=== PATIENT | female | born 1950 | race Native Hawaiian/Other Pacific Islander ===

== ENCOUNTER 2019-03-11 09:52 | Outpatient (CLI) | payer OTHER, BC ==
[2019-03-11 10:09] LABS: PLATELET COUNT 141 K/uL (152-353)
[2019-03-11 10:31] LABS: POTASSIUM 3.3 mmol/L (3.6-5.2)
== END 2019-03-11 20:11 | disposition home or self-care (01) ==
LOC: LABW 09:52
PROVIDERS: Internal Medicine Hematology & Oncology
DX: D64.89 Other specified anemias (principal)
CPT/HCPCS: 36415; 80053; 83615; 85027

== ENCOUNTER 2019-03-14 08:21 | Outpatient (CLI) | payer OTHER, BC ==
[2019-03-14 09:08] LABS: POTASSIUM 3.4 mmol/L (3.6-5.2)
[2019-03-14 09:43] LABS: PLATELET COUNT 156 K/uL (152-353)
== END 2019-03-14 23:03 | disposition home or self-care (01) ==
LOC: LABW 08:21
PROVIDERS: Internal Medicine Hematology & Oncology
DX: D64.89 Other specified anemias (principal)
CPT/HCPCS: 36415; 80053; 83615; 85027

== ENCOUNTER 2019-03-18 09:15 | Outpatient (CLI) | payer OTHER, BC ==
[2019-03-18 09:41] LABS: POTASSIUM 3.6 mmol/L (3.6-5.2)
[2019-03-18 09:50] LABS: PLATELET COUNT 128 K/uL (152-353)
== END 2019-03-18 19:12 | disposition home or self-care (01) ==
LOC: LABW 09:15
PROVIDERS: Internal Medicine Hematology & Oncology
DX: D64.89 Other specified anemias (principal)
CPT/HCPCS: 36415; 80053; 83615; 85027

== ENCOUNTER 2019-03-21 10:56 | Outpatient (CLI) | payer OTHER, BC ==
[2019-03-21 11:30] LABS: PLATELET COUNT 108 K/uL (152-353)
[2019-03-21 12:17] LABS: POTASSIUM 4.1 mmol/L (3.6-5.2)
== END 2019-03-21 22:41 | disposition home or self-care (01) ==
LOC: LABW 10:56
PROVIDERS: Internal Medicine Hematology & Oncology
DX: D64.89 Other specified anemias (principal)
CPT/HCPCS: 36415; 80053; 83615; 85027

== ENCOUNTER 2019-03-25 10:32 | Outpatient (CLI) | payer OTHER, BC ==
[2019-03-25 10:43] LABS: PLATELET COUNT 110 K/uL (152-353)
[2019-03-25 10:53] LABS: POTASSIUM 3.9 mmol/L (3.6-5.2)
== END 2019-03-25 19:13 | disposition home or self-care (01) ==
LOC: LABW 10:32
PROVIDERS: Internal Medicine Hematology & Oncology
DX: D64.89 Other specified anemias (principal)
CPT/HCPCS: 36415; 80053; 83615; 85027

== ENCOUNTER 2019-04-02 10:34 | Outpatient (CLI) | payer OTHER, BC ==
[2019-04-02 11:18] LABS: PLATELET COUNT 138 K/uL (152-353)
== END 2019-04-02 20:06 | disposition home or self-care (01) ==
LOC: LABW 10:34
PROVIDERS: Internal Medicine Hematology & Oncology
DX: D59.1 Other autoimmune hemolytic anemias (principal)
CPT/HCPCS: 36415; 83615; 85027

== ENCOUNTER 2019-04-08 12:28 | Outpatient (CLI) | payer OTHER, BC ==
[2019-04-08 12:41] LABS: PLATELET COUNT 158 K/uL (152-353)
== END 2019-04-08 21:36 | disposition home or self-care (01) ==
LOC: LABW 12:28
PROVIDERS: Internal Medicine Hematology & Oncology
DX: D59.1 Other autoimmune hemolytic anemias (principal)
CPT/HCPCS: 36415; 83615; 85027

== ENCOUNTER 2019-04-16 10:19 | Outpatient (CLI) | payer OTHER, BC ==
[2019-04-16 10:40] LABS: PLATELET COUNT 139 K/uL (152-353)
== END 2019-04-16 19:48 | disposition home or self-care (01) ==
LOC: LABW 10:19
PROVIDERS: Internal Medicine Hematology & Oncology
DX: D59.1 Other autoimmune hemolytic anemias (principal)
CPT/HCPCS: 36415; 83615; 85027

== ENCOUNTER 2019-04-22 09:59 | Outpatient (CLI) | payer OTHER, BC ==
[2019-04-22 10:45] LABS: PLATELET COUNT 139 K/uL (152-353)
[2019-04-22 10:57] LABS: POTASSIUM 4.2 mmol/L (3.6-5.2)
== END 2019-04-22 19:12 | disposition home or self-care (01) ==
LOC: LABW 09:59
PROVIDERS: Internal Medicine Hematology & Oncology
DX: D59.1 Other autoimmune hemolytic anemias (principal)
CPT/HCPCS: 36415; 80053; 83615; 85027

== ENCOUNTER 2019-04-29 11:41 | Outpatient (CLI) | payer OTHER, BC ==
[2019-04-29 11:57] LABS: PLATELET COUNT 137 K/uL (152-353)
== END 2019-04-29 19:19 | disposition home or self-care (01) ==
LOC: LABW 11:41
PROVIDERS: Internal Medicine Hematology & Oncology
DX: D59.1 Other autoimmune hemolytic anemias (principal)
CPT/HCPCS: 36415; 83615; 85027

== ENCOUNTER 2019-05-06 09:51 | Outpatient (CLI) | payer OTHER, BC ==
[2019-05-06 10:28] LABS: PLATELET COUNT 139 K/uL (152-353)
== END 2019-05-06 23:05 | disposition home or self-care (01) ==
LOC: LABW 09:51
PROVIDERS: Internal Medicine Hematology & Oncology
DX: D59.1 Other autoimmune hemolytic anemias (principal)
CPT/HCPCS: 36415; 83615; 85007; 85027

== ENCOUNTER 2019-05-14 10:15 | Outpatient (CLI) | payer OTHER, BC ==
[2019-05-14 10:43] LABS: PLATELET COUNT 112 K/uL (152-353)
[2019-05-14 10:51] LABS: POTASSIUM 3.9 mmol/L (3.6-5.2)
== END 2019-05-14 20:38 | disposition home or self-care (01) ==
LOC: LABW 10:15
PROVIDERS: Internal Medicine Hematology & Oncology
DX: D59.1 Other autoimmune hemolytic anemias (principal)
CPT/HCPCS: 36415; 80053; 83615; 85027

== ENCOUNTER 2019-05-24 09:07 | Outpatient (CLI) | payer OTHER, BC ==
[2019-05-24 09:45] LABS: PLATELET COUNT 122 K/uL (152-353)
[2019-05-24 10:00] LABS: POTASSIUM 3.8 mmol/L (3.6-5.2)
== END 2019-05-24 23:30 | disposition home or self-care (01) ==
LOC: LABW 09:07
PROVIDERS: Internal Medicine Hematology & Oncology
DX: D59.1 Other autoimmune hemolytic anemias (principal)
CPT/HCPCS: 80053; 83615; 85027

== ENCOUNTER 2019-06-04 10:05 | Outpatient (CLI) | payer OTHER, BC ==
[2019-06-04 10:45] LABS: PLATELET COUNT 133 K/uL (152-353)
[2019-06-04 11:03] LABS: POTASSIUM 3.9 mmol/L (3.6-5.2)
== END 2019-06-04 21:10 | disposition home or self-care (01) ==
LOC: LABW 10:05
PROVIDERS: Internal Medicine Hematology & Oncology
DX: D59.1 Other autoimmune hemolytic anemias (principal)
CPT/HCPCS: 36415; 80053; 83615; 85027

== ENCOUNTER 2019-06-11 10:15 | Outpatient (CLI) | payer OTHER, BC ==
[2019-06-11 12:27] LABS: PLATELET COUNT 145 K/uL (152-353)
[2019-06-11 12:47] LABS: POTASSIUM 4.1 mmol/L (3.6-5.2)
== END 2019-06-11 22:33 | disposition home or self-care (01) ==
LOC: LABW 10:15
PROVIDERS: Nurse Practitioner Family
DX: D59.1 Other autoimmune hemolytic anemias (principal)
CPT/HCPCS: 36415; 80053; 83615; 85027

== ENCOUNTER 2019-06-18 10:45 | Outpatient (CLI) | payer OTHER, BC ==
[2019-06-18 12:07] LABS: PLATELET COUNT 138 K/uL (152-353)
[2019-06-18 12:18] LABS: POTASSIUM 3.8 mmol/L (3.6-5.2)
== END 2019-06-18 19:25 | disposition home or self-care (01) ==
LOC: LABW 10:45
PROVIDERS: Nurse Practitioner Family
DX: D59.1 Other autoimmune hemolytic anemias (principal)
CPT/HCPCS: 36415; 80053; 83615; 85027

== ENCOUNTER 2019-06-25 10:17 | Outpatient (CLI) | payer OTHER, BC ==
[2019-06-25 10:55] LABS: PLATELET COUNT 128 K/uL (152-353)
[2019-06-25 11:13] LABS: POTASSIUM 4.1 mmol/L (3.6-5.2)
== END 2019-06-25 19:08 | disposition home or self-care (01) ==
LOC: LABW 10:17
PROVIDERS: Nurse Practitioner Family
DX: D59.1 Other autoimmune hemolytic anemias (principal)
CPT/HCPCS: 36415; 80053; 83615; 85027

== ENCOUNTER 2019-07-03 10:17 | Outpatient (CLI) | payer OTHER, BC ==
[2019-07-03 10:48] LABS: PLATELET COUNT 137 K/uL (152-353)
[2019-07-03 10:52] LABS: POTASSIUM 4.3 mmol/L (3.6-5.2)
== END 2019-07-03 22:22 | disposition home or self-care (01) ==
LOC: LABW 10:17
PROVIDERS: Nurse Practitioner Family
DX: D59.1 Other autoimmune hemolytic anemias (principal)
CPT/HCPCS: 36415; 80053; 83615; 85027

== ENCOUNTER 2019-07-16 09:52 | Outpatient (CLI) | payer OTHER, BC ==
[2019-07-16 10:16] LABS: PLATELET COUNT 137 K/uL (152-353)
[2019-07-16 10:29] LABS: POTASSIUM 4.2 mmol/L (3.6-5.2)
== END 2019-07-16 21:47 | disposition home or self-care (01) ==
LOC: LABW 09:52
PROVIDERS: Nurse Practitioner Family
DX: D59.1 Other autoimmune hemolytic anemias (principal)
CPT/HCPCS: 36415; 80053; 83615; 85027

== ENCOUNTER 2019-07-22 09:57 | Outpatient (CLI) | payer OTHER, BC ==
[2019-07-22 10:12] LABS: PLATELET COUNT 150 K/uL (152-353)
[2019-07-22 10:28] LABS: POTASSIUM 4.1 mmol/L (3.6-5.2); SODIUM 142 mmol/L (136-145)
== END 2019-07-22 19:52 | disposition home or self-care (01) ==
LOC: LABW 09:57
PROVIDERS: Nurse Practitioner Family
DX: D59.1 Other autoimmune hemolytic anemias (principal)
CPT/HCPCS: 36415; 80053; 83615; 85027

== ENCOUNTER 2019-07-29 10:21 | Outpatient (CLI) | payer OTHER, BC ==
[2019-07-29 10:40] LABS: PLATELET COUNT 140 K/uL (152-353)
[2019-07-29 10:50] LABS: POTASSIUM 4.2 mmol/L (3.6-5.2)
== END 2019-07-29 23:10 | disposition home or self-care (01) ==
LOC: LABW 10:21
PROVIDERS: Internal Medicine Hematology & Oncology
DX: E11.9 Type 2 diabetes mellitus without complications (principal); D59.1 Other autoimmune hemolytic anemias
CPT/HCPCS: 36415; 80053; 80061; 82043; 82570; 83036; 83525; 83615; 85027

== ENCOUNTER 2019-08-05 09:09 | Outpatient (CLI) | payer OTHER, BC ==
[2019-08-05 09:53] LABS: PLATELET COUNT 144 K/uL (152-353)
== END 2019-08-05 22:03 | disposition home or self-care (01) ==
LOC: LABW 09:09
PROVIDERS: Internal Medicine Hematology & Oncology
DX: D59.1 Other autoimmune hemolytic anemias (principal)
CPT/HCPCS: 36415; 83615; 85027

== ENCOUNTER 2019-08-13 13:51 | Outpatient (CLI) | payer OTHER, BC ==
[2019-08-13 14:35] LABS: PLATELET COUNT 143 K/uL (152-353)
== END 2019-08-13 21:33 | disposition home or self-care (01) ==
LOC: LABW 13:51
PROVIDERS: Internal Medicine Hematology & Oncology
DX: D59.1 Other autoimmune hemolytic anemias (principal)
CPT/HCPCS: 36415; 83615; 85027

== ENCOUNTER 2019-08-20 13:10 | Outpatient (CLI) | payer OTHER, BC ==
[2019-08-20 13:23] LABS: PLATELET COUNT 145 K/uL (152-353)
== END 2019-08-20 20:36 | disposition home or self-care (01) ==
LOC: LABW 13:10
PROVIDERS: Internal Medicine Hematology & Oncology
DX: D59.1 Other autoimmune hemolytic anemias (principal)
CPT/HCPCS: 36415; 83615; 85027

== ENCOUNTER 2019-09-03 10:18 | Outpatient (CLI) | payer OTHER, BC ==
[2019-09-03 10:37] LABS: PLATELET COUNT 133 K/uL (152-353)
== END 2019-09-03 20:37 | disposition home or self-care (01) ==
LOC: LABW 10:18
PROVIDERS: Internal Medicine Hematology & Oncology
DX: D59.1 Other autoimmune hemolytic anemias (principal)
CPT/HCPCS: 36415; 83615; 85027

== ENCOUNTER 2019-09-10 10:31 | Outpatient (CLI) | payer OTHER, BC ==
[2019-09-10 10:52] LABS: PLATELET COUNT 128 K/uL (152-353)
== END 2019-09-10 19:07 | disposition home or self-care (01) ==
LOC: LABW 10:31
PROVIDERS: Internal Medicine Hematology & Oncology
DX: D59.1 Other autoimmune hemolytic anemias (principal)
CPT/HCPCS: 36415; 83615; 85027

== ENCOUNTER 2019-09-17 13:53 | Outpatient (CLI) | payer OTHER, BC ==
[2019-09-17 14:26] LABS: PLATELET COUNT 138 K/uL (152-353)
== END 2019-09-17 21:27 | disposition home or self-care (01) ==
LOC: LABW 13:53
PROVIDERS: Internal Medicine Hematology & Oncology
DX: D59.1 Other autoimmune hemolytic anemias (principal)
CPT/HCPCS: 36415; 83615; 85007; 85027

== ENCOUNTER 2019-09-19 14:13 | Outpatient (CLI) | payer OTHER, BC | END 2019-09-19 19:34 | disposition home or self-care (01) | LOC: LABW 14:13 | PROVIDERS: Internal Medicine Hematology & Oncology | DX: D59.1 Other autoimmune hemolytic anemias (principal) | CPT/HCPCS: 36415; 80053; 83010; 83615 ==

== ENCOUNTER 2019-09-24 14:06 | Outpatient (CLI) | payer OTHER, BC ==
[2019-09-24 14:51] LABS: PLATELET COUNT 137 K/uL (152-353)
[2019-09-24 16:02] LABS: POTASSIUM 4.3 mmol/L (3.6-5.2)
== END 2019-09-24 23:33 | disposition home or self-care (01) ==
LOC: LABW 14:06
PROVIDERS: Internal Medicine Hematology & Oncology
DX: D61.818 Other pancytopenia (principal); D64.9 Anemia, unspecified
CPT/HCPCS: 36415; 80053; 82607; 82728; 82746; 83010; 83540; 83550; 83615; 85027

== ENCOUNTER 2019-10-17 12:07 | Outpatient (CLI) | payer OTHER, BC ==
[2019-10-17 14:04] LABS: PLATELET COUNT 157 K/uL (152-353)
== END 2019-10-17 22:02 | disposition home or self-care (01) ==
LOC: LABW 12:07
PROVIDERS: Internal Medicine Hematology & Oncology
DX: D61.818 Other pancytopenia (principal)
CPT/HCPCS: 36415; 85027

== ENCOUNTER 2019-11-12 13:19 | Outpatient (CLI) | payer OTHER, BC ==
[2019-11-12 13:33] LABS: PLATELET COUNT 140 K/uL (152-353)
== END 2019-11-12 20:30 | disposition home or self-care (01) ==
LOC: LABW 13:19
PROVIDERS: Internal Medicine Hematology & Oncology
DX: D59.1 Other autoimmune hemolytic anemias (principal)
CPT/HCPCS: 36415; 85027

== ENCOUNTER 2019-12-03 13:53 | Outpatient (CLI) | payer OTHER, BC ==
[2019-12-03 14:08] LABS: PLATELET COUNT 159 K/uL (152-353)
[2019-12-03 14:24] LABS: POTASSIUM 4.4 mmol/L (3.6-5.2)
== END 2019-12-03 19:13 | disposition home or self-care (01) ==
LOC: LABW 13:53
PROVIDERS: Internal Medicine Hematology & Oncology
DX: D59.10 Autoimmune hemolytic anemia, unspecified (principal)
CPT/HCPCS: 36415; 80053; 85027

== ENCOUNTER 2020-01-02 13:32 | Outpatient (CLI) | payer OTHER, BC ==
[2020-01-02 14:08] LABS: POTASSIUM 4.3 mmol/L (3.6-5.2)
[2020-01-02 14:26] LABS: PLATELET COUNT 162 K/uL (152-353)
== END 2020-01-02 21:05 | disposition home or self-care (01) ==
LOC: LABW 13:32
PROVIDERS: ATTEND Internal Medicine Hematology & Oncology
DX: D59.19 Other autoimmune hemolytic anemia (principal)
CPT/HCPCS: 36415; 80053; 85027

== ENCOUNTER 2020-02-28 15:29 | Outpatient (CLI) | payer BC ==
[2020-02-28 16:09] LABS: PLATELET COUNT 129 K/uL (152-353)
[2020-02-28 16:20] LABS: POTASSIUM 4.4 mmol/L (3.6-5.2)
== END 2020-02-28 19:06 | disposition home or self-care (01) ==
LOC: LABW 15:29
PROVIDERS: ATTEND Nurse Practitioner Family
DX: D59.10 Autoimmune hemolytic anemia, unspecified (principal)
CPT/HCPCS: 36415; 80053; 83615; 85027

== ENCOUNTER 2020-03-05 13:34 | Outpatient (CLI) | payer BC ==
[2020-03-05 14:07] LABS: PLATELET COUNT 105 K/uL (152-353)
[2020-03-05 14:24] LABS: POTASSIUM 4.1 mmol/L (3.6-5.2)
== END 2020-03-05 21:39 | disposition home or self-care (01) ==
LOC: LABW 13:34
PROVIDERS: ATTEND Internal Medicine Hematology & Oncology
DX: D61.818 Other pancytopenia (principal)
CPT/HCPCS: 36415; 80053; 85027

== ENCOUNTER 2020-03-17 14:14 | Outpatient (CLI) | payer BC ==
[2020-03-17 14:54] LABS: POTASSIUM 4.4 mmol/L (3.6-5.2)
[2020-03-17 15:11] LABS: PLATELET COUNT 111 K/uL (152-353)
== END 2020-03-17 21:36 | disposition home or self-care (01) ==
LOC: LABW 14:14
PROVIDERS: ATTEND Nurse Practitioner Family
DX: D61.818 Other pancytopenia (principal)
CPT/HCPCS: 36415; 80053; 85027

== ENCOUNTER 2020-03-26 08:05 | Outpatient (CLI) | payer BC ==
[2020-03-26 08:14] LABS: PLATELET COUNT 151 K/uL (152-353)
== END 2020-03-26 20:04 | disposition home or self-care (01) ==
LOC: LAB 08:05
PROVIDERS: ATTEND Nurse Practitioner Family
DX: D61.818 Other pancytopenia (principal)
CPT/HCPCS: 80053; 85027

== ENCOUNTER 2020-04-08 08:50 | Outpatient (CLI) | payer BC ==
[2020-04-08 09:20] LABS: PLATELET COUNT 140 K/uL (152-353)
== END 2020-04-08 21:40 | disposition home or self-care (01) ==
LOC: LAB 08:50
PROVIDERS: ATTEND Internal Medicine Hematology & Oncology
DX: D61.818 Other pancytopenia (principal)
CPT/HCPCS: 80053; 85027

== ENCOUNTER 2020-04-22 13:17 | Outpatient (CLI) | payer BC ==
[2020-04-22 13:31] LABS: POTASSIUM 4.5 mmol/L (3.6-5.2)
[2020-04-22 13:59] LABS: PLATELET COUNT 125 K/uL (152-353)
== END 2020-04-22 21:13 | disposition home or self-care (01) ==
LOC: LAB 13:17
PROVIDERS: ATTEND Internal Medicine Hematology & Oncology
DX: D59.10 Autoimmune hemolytic anemia, unspecified (principal); D61.818 Other pancytopenia
CPT/HCPCS: 80053; 85027

== ENCOUNTER 2020-04-29 08:30 | Outpatient (CLI) | payer BC ==
[2020-04-29 09:37] LABS: PLATELET COUNT 118 K/uL (152-353)
[2020-04-29 10:07] LABS: POTASSIUM 3.8 mmol/L (3.6-5.2)
== END 2020-04-29 19:33 | disposition home or self-care (01) ==
LOC: LAB 08:30
PROVIDERS: ATTEND Internal Medicine Hematology & Oncology
DX: D59.10 Autoimmune hemolytic anemia, unspecified (principal); D61.818 Other pancytopenia
CPT/HCPCS: 80053; 85027

== ENCOUNTER 2020-05-06 14:25 | Outpatient (CLI) | payer BC ==
[2020-05-06 14:34] LABS: PLATELET COUNT 131 K/uL (152-353)
[2020-05-06 14:51] LABS: POTASSIUM 4.7 mmol/L (3.6-5.2)
== END 2020-05-06 22:20 | disposition home or self-care (01) ==
LOC: LAB 14:25
PROVIDERS: ATTEND Internal Medicine Hematology & Oncology
DX: D59.10 Autoimmune hemolytic anemia, unspecified (principal); D61.818 Other pancytopenia
CPT/HCPCS: 80053; 85027

== ENCOUNTER 2020-05-13 08:43 | Outpatient (CLI) | payer BC ==
[2020-05-13 08:59] LABS: PLATELET COUNT 128 K/uL (152-353)
[2020-05-13 09:40] LABS: POTASSIUM 4.5 mmol/L (3.6-5.2); SODIUM 139 mmol/L (136-145)
== END 2020-05-13 21:55 | disposition home or self-care (01) ==
LOC: LAB 08:43
PROVIDERS: ATTEND Nurse Practitioner Family
DX: D59.10 Autoimmune hemolytic anemia, unspecified (principal)
CPT/HCPCS: 80053; 83615; 85027

== ENCOUNTER 2020-05-20 10:09 | Outpatient (CLI) | payer BC ==
[2020-05-20 10:19] LABS: PLATELET COUNT 122 K/uL (152-353)
== END 2020-05-20 22:42 | disposition home or self-care (01) ==
LOC: LAB 10:09
PROVIDERS: ATTEND Nurse Practitioner Family
DX: D61.818 Other pancytopenia (principal)
CPT/HCPCS: 85027

== ENCOUNTER 2020-05-27 09:46 | Outpatient (CLI) | payer BC ==
[2020-05-27 10:19] LABS: PLATELET COUNT 124 K/uL (152-353)
== END 2020-05-27 20:07 | disposition home or self-care (01) ==
LOC: LAB 09:46
PROVIDERS: ATTEND Nurse Practitioner Family
DX: D61.818 Other pancytopenia (principal)
CPT/HCPCS: 85027

== ENCOUNTER 2020-06-04 09:35 | Outpatient (CLI) | payer BC ==
[2020-06-04 09:52] LABS: PLATELET COUNT 132 K/uL (152-353)
== END 2020-06-04 21:05 | disposition home or self-care (01) ==
LOC: LAB 09:35
PROVIDERS: ATTEND Nurse Practitioner Family
DX: D61.818 Other pancytopenia (principal)
CPT/HCPCS: 85027

== ENCOUNTER 2020-06-10 08:27 | Outpatient (CLI) | payer BC ==
[2020-06-10 08:43] LABS: PLATELET COUNT 152 K/uL (152-353)
== END 2020-06-10 21:16 | disposition home or self-care (01) ==
LOC: LAB 08:27
PROVIDERS: ATTEND Nurse Practitioner Family
DX: D61.818 Other pancytopenia (principal)
CPT/HCPCS: 85027

== ENCOUNTER 2020-06-18 09:33 | Outpatient (CLI) | payer BC ==
[2020-06-18 10:01] LABS: PLATELET COUNT 132 K/uL (152-353)
== END 2020-06-18 19:24 | disposition home or self-care (01) ==
LOC: LAB 09:33
PROVIDERS: ATTEND Nurse Practitioner Family
DX: D59.19 Other autoimmune hemolytic anemia (principal)
CPT/HCPCS: 80053; 85027

== ENCOUNTER 2020-06-24 08:07 | Outpatient (CLI) | payer BC ==
[2020-06-24 08:26] LABS: PLATELET COUNT 122 K/uL (152-353)
== END 2020-06-24 19:17 | disposition home or self-care (01) ==
LOC: LAB 08:07
PROVIDERS: ATTEND Nurse Practitioner Family
DX: D59.10 Autoimmune hemolytic anemia, unspecified (principal)
CPT/HCPCS: 85027

== ENCOUNTER 2020-07-01 09:28 | Outpatient (CLI) | payer BC ==
[2020-07-01 10:18] LABS: PLATELET COUNT 120 K/uL (152-353)
== END 2020-07-01 20:41 | disposition home or self-care (01) ==
LOC: LAB 09:28
PROVIDERS: ATTEND Nurse Practitioner Family
DX: D59.10 Autoimmune hemolytic anemia, unspecified (principal)
CPT/HCPCS: 85027

== ENCOUNTER 2020-07-07 08:28 | Outpatient (CLI) | payer BC ==
[2020-07-07 08:46] LABS: PLATELET COUNT 157 K/uL (152-353)
== END 2020-07-07 19:32 | disposition home or self-care (01) ==
LOC: LAB 08:28
PROVIDERS: ATTEND Nurse Practitioner Family
DX: D59.10 Autoimmune hemolytic anemia, unspecified (principal)
CPT/HCPCS: 85027

== ENCOUNTER 2020-07-15 08:02 | Outpatient (CLI) | payer BC ==
[2020-07-15 08:56] LABS: PLATELET COUNT 122 K/uL (152-353)
== END 2020-07-15 20:13 | disposition home or self-care (01) ==
LOC: LAB 08:02
PROVIDERS: ATTEND Nurse Practitioner Family
DX: D59.19 Other autoimmune hemolytic anemia (principal)
CPT/HCPCS: 36415; 85027

== ENCOUNTER 2020-07-29 08:23 | Outpatient (CLI) | payer BC ==
[2020-07-29 09:03] LABS: PLATELET COUNT 532 K/uL (152-353)
== END 2020-07-29 23:00 | disposition home or self-care (01) ==
LOC: LAB 08:23
PROVIDERS: ATTEND Nurse Practitioner Family
DX: D59.10 Autoimmune hemolytic anemia, unspecified (principal)
CPT/HCPCS: 85027

== ENCOUNTER 2020-08-04 08:19 | Outpatient (CLI) | payer BC ==
[2020-08-04 08:44] LABS: PLATELET COUNT 578 K/uL (152-353)
== END 2020-08-04 19:18 | disposition home or self-care (01) ==
LOC: LAB 08:19
PROVIDERS: ATTEND Nurse Practitioner Family
DX: D59.19 Other autoimmune hemolytic anemia (principal)
CPT/HCPCS: 85027

== ENCOUNTER 2020-08-12 07:58 | Outpatient (CLI) | payer BC ==
[2020-08-23 10:47] LABS: PLATELET COUNT 478 K/uL (152-353)
== END 2020-08-12 17:00 ==
LOC: LABW 07:58
PROVIDERS: ATTEND Nurse Practitioner Family
DX: D59.19 Other autoimmune hemolytic anemia (principal)
CPT/HCPCS: 85027

== ENCOUNTER 2020-08-19 08:32 | Outpatient (CLI) | payer BC ==
[2020-08-26 14:46] LABS: PLATELET COUNT 462 K/uL (152-353)
== END 2020-08-19 17:00 | disposition home or self-care (01) ==
LOC: LAB 08:32
PROVIDERS: ATTEND Internal Medicine Hematology & Oncology
DX: D59.10 Autoimmune hemolytic anemia, unspecified (principal)
CPT/HCPCS: 85027

== ENCOUNTER 2020-08-25 08:42 | Outpatient (CLI) | payer BC ==
[2020-08-25 08:59] LABS: PLATELET COUNT 417 K/uL (152-353)
== END 2020-08-25 19:10 | disposition home or self-care (01) ==
LOC: LAB 08:42
PROVIDERS: ATTEND Internal Medicine Hematology & Oncology
DX: D59.19 Other autoimmune hemolytic anemia (principal)
CPT/HCPCS: 85027

== ENCOUNTER 2020-09-02 08:31 | Outpatient (CLI) | payer BC ==
[2020-09-02 08:48] LABS: PLATELET COUNT 440 K/uL (152-353)
== END 2020-09-02 21:24 | disposition home or self-care (01) ==
LOC: LAB 08:31
PROVIDERS: ATTEND Internal Medicine Hematology & Oncology
DX: D59.19 Other autoimmune hemolytic anemia (principal)
CPT/HCPCS: 85027

== ENCOUNTER 2020-09-10 09:07 | Outpatient (CLI) | payer BC ==
[2020-09-10 09:30] LABS: PLATELET COUNT 469 K/uL (152-353)
== END 2020-09-10 21:01 | disposition home or self-care (01) ==
LOC: LAB 09:07
PROVIDERS: ATTEND Internal Medicine Hematology & Oncology
DX: D59.10 Autoimmune hemolytic anemia, unspecified (principal)
CPT/HCPCS: 85027

== ENCOUNTER 2020-09-16 08:48 | Outpatient (CLI) | payer BC ==
[2020-09-16 08:59] LABS: PLATELET COUNT 499 K/uL (152-353)
== END 2020-09-16 23:28 | disposition home or self-care (01) ==
LOC: LAB 08:48
PROVIDERS: ATTEND Internal Medicine Hematology & Oncology
DX: D59.19 Other autoimmune hemolytic anemia (principal)
CPT/HCPCS: 85027

== ENCOUNTER 2020-09-23 09:55 | Outpatient (CLI) | payer BC ==
[2020-09-23 10:24] LABS: PLATELET COUNT 488 K/uL (152-353)
== END 2020-09-23 15:35 | disposition home or self-care (01) ==
LOC: LAB 09:55
PROVIDERS: ATTEND Internal Medicine Hematology & Oncology
DX: D59.19 Other autoimmune hemolytic anemia (principal)
CPT/HCPCS: 85027

== ENCOUNTER 2020-10-08 08:01 | Outpatient (CLI) | payer BC ==
[2020-10-08 08:58] LABS: PLATELET COUNT 502 K/uL (152-353)
== END 2020-10-08 19:34 | disposition home or self-care (01) ==
LOC: LAB 08:01
PROVIDERS: ATTEND Nurse Practitioner Family
DX: D59.10 Autoimmune hemolytic anemia, unspecified (principal)
CPT/HCPCS: 85027

== ENCOUNTER 2020-10-09 09:03 | Outpatient (CLI) | payer BC ==
[2020-10-09 09:33] LABS: PLATELET COUNT 483 K/uL (152-353)
[2020-10-09 09:53] LABS: POTASSIUM 4.2 mmol/L (3.6-5.2)
== END 2020-10-09 19:04 | disposition home or self-care (01) ==
LOC: LAB 09:03
PROVIDERS: ATTEND Nurse Practitioner Family
DX: D61.818 Other pancytopenia (principal); D59.10 Autoimmune hemolytic anemia, unspecified
CPT/HCPCS: 36415; 80053; 82728; 82746; 83010; 83540; 83550; 83615; 85027

== ENCOUNTER 2020-10-14 10:47 | Outpatient (CLI) | payer BC | END 2020-10-14 19:10 | disposition home or self-care (01) | LOC: LAB 10:47 | PROVIDERS: ATTEND Nurse Practitioner Family | DX: D61.818 Other pancytopenia (principal); D59.10 Autoimmune hemolytic anemia, unspecified | CPT/HCPCS: 82607 ==

== ENCOUNTER 2020-12-16 08:42 | Outpatient (CLI) | payer BC ==
[2020-12-16 09:03] LABS: PLATELET COUNT 484 K/uL (152-353)
[2020-12-16 09:05] LABS: POTASSIUM 4.2 mmol/L (3.6-5.2)
== END 2020-12-16 19:15 | disposition home or self-care (01) ==
LOC: LAB 08:42
PROVIDERS: ATTEND Nurse Practitioner Family
DX: D61.818 Other pancytopenia (principal)
CPT/HCPCS: 80053; 85027

== ENCOUNTER 2021-01-12 08:08 | Outpatient (CLI) | payer BC ==
[2021-01-12 08:15] LABS: PLATELET COUNT 429 K/uL (152-353)
[2021-01-12 08:32] LABS: POTASSIUM 3.7 mmol/L (3.6-5.2)
== END 2021-01-12 18:54 | disposition home or self-care (01) ==
LOC: LAB 08:08
PROVIDERS: ATTEND Nurse Practitioner Family
DX: N18.31 Chronic kidney disease, stage 3a (principal); D61.818 Other pancytopenia
CPT/HCPCS: 80053; 84100; 85027

== ENCOUNTER 2021-01-20 10:32 | Outpatient (CLI) | payer BC ==
[2021-01-20 10:51] LABS: PLATELET COUNT 507 K/uL (152-353)
[2021-01-20 10:55] LABS: POTASSIUM 4.2 mmol/L (3.6-5.2)
== END 2021-01-20 20:21 | disposition home or self-care (01) ==
LOC: LAB 10:32
PROVIDERS: ATTEND Nurse Practitioner Family
DX: D61.818 Other pancytopenia (principal)
CPT/HCPCS: 80053; 85027

== ENCOUNTER 2021-02-09 08:07 | Outpatient (CLI) | payer BC ==
[2021-02-09 09:21] LABS: PLATELET COUNT 433 K/uL (152-353)
== END 2021-02-09 18:49 | disposition home or self-care (01) ==
LOC: LAB 08:07
PROVIDERS: ATTEND Nurse Practitioner Family
DX: D61.818 Other pancytopenia (principal)
CPT/HCPCS: 80053; 85027

== ENCOUNTER 2021-03-16 08:22 | Outpatient (CLI) | payer BC ==
[2021-03-16 08:52] LABS: PLATELET COUNT 380 K/uL (152-353)
[2021-03-16 09:08] LABS: POTASSIUM 4.1 mmol/L (3.6-5.2)
== END 2021-03-16 18:55 | disposition home or self-care (01) ==
LOC: LAB 08:22
PROVIDERS: ATTEND Nurse Practitioner Family
DX: D61.818 Other pancytopenia (principal)
CPT/HCPCS: 80053; 85027

== ENCOUNTER 2021-03-19 08:18 | Outpatient (CLI) | payer BC | END 2021-03-19 23:04 | disposition home or self-care (01) | LOC: LAB 08:18 | PROVIDERS: ATTEND Nurse Practitioner Family | DX: D59.10 Autoimmune hemolytic anemia, unspecified (principal) | CPT/HCPCS: 86880 ==

== ENCOUNTER 2021-03-31 11:40 | Outpatient (CLI) | payer BC ==
[2021-03-31 13:09] LABS: PLATELET COUNT 392 K/uL (152-353)
[2021-03-31 13:22] LABS: POTASSIUM 3.8 mmol/L (3.6-5.2)
== END 2021-03-31 18:59 | disposition home or self-care (01) ==
LOC: LAB 11:40
PROVIDERS: ATTEND Nurse Practitioner Family
DX: D59.19 Other autoimmune hemolytic anemia (principal)
CPT/HCPCS: 80053; 83615; 85027

== ENCOUNTER 2021-04-13 09:17 | Outpatient (CLI) | payer BC ==
[2021-04-13 09:39] LABS: PLATELET COUNT 480 K/uL (152-353)
[2021-04-13 09:47] LABS: POTASSIUM 4.1 mmol/L (3.6-5.2)
== END 2021-04-13 18:54 | disposition home or self-care (01) ==
LOC: LAB 09:17
PROVIDERS: ATTEND Internal Medicine Hematology & Oncology
DX: D59.19 Other autoimmune hemolytic anemia (principal)
CPT/HCPCS: 80053; 83615; 85027

== ENCOUNTER 2021-04-28 08:30 | Outpatient (CLI) | payer BC ==
[2021-04-28 08:52] LABS: PLATELET COUNT 381 K/uL (152-353)
[2021-04-28 08:58] LABS: POTASSIUM 4.3 mmol/L (3.6-5.2)
== END 2021-04-28 19:35 | disposition home or self-care (01) ==
LOC: LAB 08:30
PROVIDERS: ATTEND Nurse Practitioner Family
DX: D59.10 Autoimmune hemolytic anemia, unspecified (principal)
CPT/HCPCS: 80053; 83615; 85027

== ENCOUNTER 2021-05-06 08:06 | Outpatient (CLI) | payer BC ==
[2021-05-06 08:34] LABS: PLATELET COUNT 387 K/uL (152-353)
[2021-05-06 08:57] LABS: POTASSIUM 4.4 mmol/L (3.6-5.2)
== END 2021-05-06 20:38 | disposition home or self-care (01) ==
LOC: LAB 08:06
PROVIDERS: ATTEND Nurse Practitioner Family
DX: D59.10 Autoimmune hemolytic anemia, unspecified (principal)
CPT/HCPCS: 80053; 83615; 85027

== ENCOUNTER 2021-06-16 12:43 | Outpatient (CLI) | payer BC | END 2021-06-16 19:20 | disposition home or self-care (01) | LOC: RAD 12:43 | PROVIDERS: ATTEND Nurse Practitioner Family | DX: Z13.820 Encounter for screening for osteoporosis (principal); N95.8 Other specified menopausal and perimenopausal disorders ==

== ENCOUNTER 2021-06-30 08:23 | Outpatient (CLI) | payer BC ==
[2021-06-30 08:36] LABS: PLATELET COUNT 354 K/uL (152-353)
[2021-06-30 08:48] LABS: POTASSIUM 3.7 mmol/L (3.6-5.2)
== END 2021-06-30 18:51 | disposition home or self-care (01) ==
LOC: LAB 08:23
PROVIDERS: ATTEND Nurse Practitioner Family
DX: D59.19 Other autoimmune hemolytic anemia (principal)
CPT/HCPCS: 80053; 83615; 85027

== ENCOUNTER 2021-08-11 08:07 | Outpatient (CLI) | payer BC ==
[2021-08-11 08:23] LABS: PLATELET COUNT 322 K/uL (152-353)
[2021-08-11 08:52] LABS: POTASSIUM 4.5 mmol/L (3.6-5.2)
== END 2021-08-11 19:19 | disposition home or self-care (01) ==
LOC: LAB 08:07
PROVIDERS: ATTEND Nurse Practitioner Family
DX: I10 Essential (primary) hypertension (principal); E11.65 Type 2 diabetes mellitus with hyperglycemia; D52.8 Other folate deficiency anemias; D84.81 Immunodeficiency due to conditions classified elsewhere; D59.19 Other autoimmune hemolytic anemia
CPT/HCPCS: 80053; 80061; 82607; 82652; 83036; 83615; 84436; 84443; 84479; 85027

== ENCOUNTER 2021-09-17 08:01 | Outpatient (CLI) | payer BC ==
[2021-09-17 08:11] LABS: PLATELET COUNT 334 K/uL (152-353)
[2021-09-17 09:01] LABS: POTASSIUM 4.4 mmol/L (3.6-5.2)
== END 2021-09-17 21:34 | disposition home or self-care (01) ==
LOC: LAB 08:01
PROVIDERS: ATTEND Nurse Practitioner Family
DX: D59.19 Other autoimmune hemolytic anemia (principal)
CPT/HCPCS: 80053; 83615; 85027

== ENCOUNTER 2021-09-27 09:19 | Outpatient (CLI) | payer BC ==
[2021-09-27 09:47] LABS: PLATELET COUNT 359 K/uL (152-353)
[2021-09-27 10:28] LABS: POTASSIUM 4.1 mmol/L (3.6-5.2)
== END 2021-09-27 18:57 | disposition home or self-care (01) ==
LOC: LAB 09:19
PROVIDERS: ATTEND Nurse Practitioner Family
DX: D61.818 Other pancytopenia (principal); D64.9 Anemia, unspecified
CPT/HCPCS: 80053; 82607; 82728; 82746; 83540; 83550; 83615; 85027

== ENCOUNTER 2021-10-12 08:08 | Outpatient (CLI) | payer BC ==
[2021-10-12 08:24] LABS: PLATELET COUNT 367 K/uL (152-353)
[2021-10-12 08:33] LABS: POTASSIUM 4.1 mmol/L (3.6-5.2)
== END 2021-10-12 18:55 | disposition home or self-care (01) ==
LOC: LAB 08:08
PROVIDERS: ATTEND Nurse Practitioner Family
DX: D61.818 Other pancytopenia (principal)
CPT/HCPCS: 80053; 83615; 85027

== ENCOUNTER 2021-10-26 08:14 | Outpatient (CLI) | payer BC ==
[2021-10-26 08:20] LABS: PLATELET COUNT 365 K/uL (152-353)
[2021-10-26 08:40] LABS: POTASSIUM 3.9 mmol/L (3.6-5.2)
== END 2021-10-26 18:46 | disposition home or self-care (01) ==
LOC: LAB 08:14
PROVIDERS: ATTEND Nurse Practitioner Family
DX: D59.19 Other autoimmune hemolytic anemia (principal)
CPT/HCPCS: 80053; 83615; 85027

== ENCOUNTER 2021-11-09 08:15 | Outpatient (CLI) | payer BC ==
[2021-11-09 08:30] LABS: PLATELET COUNT 324 K/uL (152-353)
[2021-11-09 08:42] LABS: POTASSIUM 3.9 mmol/L (3.6-5.2)
== END 2021-11-09 20:18 | disposition home or self-care (01) ==
LOC: LAB 08:15
PROVIDERS: ATTEND Nurse Practitioner Family
DX: D59.19 Other autoimmune hemolytic anemia (principal)
CPT/HCPCS: 80053; 83615; 85027

== ENCOUNTER 2021-11-24 08:06 | Outpatient (CLI) | payer BC ==
[2021-11-24 08:38] LABS: PLATELET COUNT 377 K/uL (152-353)
[2021-11-24 08:49] LABS: POTASSIUM 4.4 mmol/L (3.6-5.2)
== END 2021-11-24 19:07 | disposition home or self-care (01) ==
LOC: LAB 08:06
PROVIDERS: ATTEND Nurse Practitioner Family
DX: D59.10 Autoimmune hemolytic anemia, unspecified (principal)
CPT/HCPCS: 80053; 83615; 85027

== ENCOUNTER 2021-12-15 08:22 | Outpatient (CLI) | payer BC ==
[2021-12-15 08:33] LABS: PLATELET COUNT 350 K/uL (152-353)
[2021-12-15 09:06] LABS: POTASSIUM 4.1 mmol/L (3.6-5.2)
== END 2021-12-15 18:56 | disposition home or self-care (01) ==
LOC: LAB 08:22
PROVIDERS: ATTEND Nurse Practitioner Family
DX: D59.19 Other autoimmune hemolytic anemia (principal)
CPT/HCPCS: 36415; 80053; 83615; 85027

== ENCOUNTER 2022-01-12 08:47 | Outpatient (CLI) | payer BC ==
[2022-01-12 11:41] LABS: POTASSIUM 4.1 mmol/L (3.6-5.2)
[2022-01-12 11:58] LABS: PLATELET COUNT 397 K/uL (152-353)
== END 2022-01-12 19:17 | disposition home or self-care (01) ==
LOC: LAB 08:47
PROVIDERS: ATTEND Nurse Practitioner Family
DX: D59.19 Other autoimmune hemolytic anemia (principal); E53.8 Deficiency of other specified B group vitamins
CPT/HCPCS: 80053; 82607; 82746; 83615; 85027

== ENCOUNTER 2022-02-10 08:17 | Outpatient (CLI) | payer BC ==
[2022-02-10 08:33] LABS: PLATELET COUNT 256 K/uL (152-353)
[2022-02-10 08:45] LABS: POTASSIUM 3.9 mmol/L (3.6-5.2)
== END 2022-02-10 21:33 | disposition home or self-care (01) ==
LOC: LAB 08:17
PROVIDERS: ATTEND Nurse Practitioner Family
DX: D59.19 Other autoimmune hemolytic anemia (principal); E53.8 Deficiency of other specified B group vitamins
CPT/HCPCS: 36415; 80053; 82607; 82746; 83615; 85027

== ENCOUNTER 2022-03-14 08:02 | Outpatient (CLI) | payer BC ==
[2022-03-14 08:18] LABS: PLATELET COUNT 264 K/uL (152-353)
== END 2022-03-14 19:21 | disposition home or self-care (01) ==
LOC: LAB 08:02
PROVIDERS: ATTEND Nurse Practitioner Family
DX: D59.19 Other autoimmune hemolytic anemia (principal); E53.8 Deficiency of other specified B group vitamins
CPT/HCPCS: 80053; 82607; 82746; 83615; 85027

== ENCOUNTER 2022-03-28 08:26 | Outpatient (CLI) | payer BC ==
[2022-03-28 08:41] LABS: PLATELET COUNT 370 K/uL (152-353)
[2022-03-28 09:00] LABS: POTASSIUM 4.1 mmol/L (3.6-5.2)
== END 2022-03-28 20:14 | disposition home or self-care (01) ==
LOC: LAB 08:26
PROVIDERS: ATTEND Nurse Practitioner Family
DX: D59.19 Other autoimmune hemolytic anemia (principal)
CPT/HCPCS: 80053; 83615; 85027

== ENCOUNTER 2022-04-05 08:58 | Outpatient (CLI) | payer BC | END 2022-04-05 19:36 | disposition home or self-care (01) | LOC: EDSTATUS 08:58 → LAB 08:58 | PROVIDERS: ATTEND Nurse Practitioner Family | DX: E11.65 Type 2 diabetes mellitus with hyperglycemia (principal); I10 Essential (primary) hypertension; R53.83 Other fatigue; E55.9 Vitamin D deficiency, unspecified | CPT/HCPCS: 80061; 82306; 83036; 84436; 84443; 84479 ==

== ENCOUNTER 2022-04-14 08:19 | Outpatient (CLI) | payer BC ==
[2022-04-14 08:32] LABS: PLATELET COUNT 337 K/uL (152-353)
[2022-04-14 09:02] LABS: POTASSIUM 4.1 mmol/L (3.6-5.2)
== END 2022-04-14 22:24 | disposition home or self-care (01) ==
LOC: LAB 08:19
PROVIDERS: ATTEND Nurse Practitioner Family
DX: D59.19 Other autoimmune hemolytic anemia (principal); E53.8 Deficiency of other specified B group vitamins
CPT/HCPCS: 80053; 82607; 82746; 83615; 85027

== ENCOUNTER 2022-05-06 08:03 | Outpatient (CLI) | payer BC ==
[2022-05-06 08:31] LABS: PLATELET COUNT 350 K/uL (152-353)
[2022-05-06 09:21] LABS: POTASSIUM 4.4 mmol/L (3.6-5.2)
== END 2022-05-06 19:06 | disposition home or self-care (01) ==
LOC: LAB 08:03
PROVIDERS: ATTEND Nurse Practitioner Family
DX: D59.19 Other autoimmune hemolytic anemia (principal)
CPT/HCPCS: 80053; 83615; 85027

== ENCOUNTER 2022-06-14 08:11 | Outpatient (CLI) | payer BC ==
[2022-06-14 08:39] LABS: PLATELET COUNT 340 K/uL (152-353)
[2022-06-14 08:49] LABS: POTASSIUM 4.3 mmol/L (3.6-5.2)
== END 2022-06-14 18:56 | disposition home or self-care (01) ==
LOC: LAB 08:11
PROVIDERS: ATTEND Nurse Practitioner Family
DX: D59.19 Other autoimmune hemolytic anemia (principal)
CPT/HCPCS: 80053; 83615; 85027

== ENCOUNTER 2022-07-15 08:47 | Outpatient (CLI) | payer BC ==
[2022-07-15 09:18] LABS: POTASSIUM 4.9 mmol/L (3.6-5.2)
[2022-07-15 09:33] LABS: PLATELET COUNT 370 K/uL (152-353)
== END 2022-07-15 18:54 | disposition home or self-care (01) ==
LOC: LAB 08:47
PROVIDERS: ATTEND Nurse Practitioner Family
DX: D59.19 Other autoimmune hemolytic anemia (principal)
CPT/HCPCS: 80053; 83615; 85027

== ENCOUNTER 2022-08-11 08:03 | Outpatient (CLI) | payer BC ==
[2022-08-11 08:21] LABS: PLATELET COUNT 287 K/uL (152-353)
[2022-08-11 08:39] LABS: POTASSIUM 4.2 mmol/L (3.6-5.2)
== END 2022-08-11 18:58 | disposition home or self-care (01) ==
LOC: LAB 08:03
PROVIDERS: ATTEND Internal Medicine Hematology & Oncology
DX: D61.818 Other pancytopenia (principal)
CPT/HCPCS: 36415; 80053; 83615; 85027

== ENCOUNTER 2022-09-15 08:09 | Outpatient (CLI) | payer BC ==
[2022-09-15 08:36] LABS: POTASSIUM 4.2 mmol/L (3.6-5.2)
[2022-09-15 08:48] LABS: PLATELET COUNT 274 K/uL (152-353)
== END 2022-09-15 19:47 | disposition home or self-care (01) ==
LOC: LAB 08:09
PROVIDERS: ATTEND Nurse Practitioner Family
DX: D59.19 Other autoimmune hemolytic anemia (principal)
CPT/HCPCS: 80053; 83615; 85027

== ENCOUNTER 2022-10-13 08:28 | Outpatient (CLI) | payer BC ==
[2022-10-13 09:54] LABS: PLATELET COUNT 299 K/uL (152-353)
== END 2022-10-13 19:55 | disposition home or self-care (01) ==
LOC: LAB 08:28
PROVIDERS: ATTEND Nurse Practitioner Family
DX: D59.19 Other autoimmune hemolytic anemia (principal)
CPT/HCPCS: 80053; 83615; 85027

== ENCOUNTER 2022-11-08 08:07 | Outpatient (CLI) | payer BC ==
[2022-11-08 08:21] LABS: PLATELET COUNT 327 K/uL (152-353)
== END 2022-11-08 20:42 | disposition home or self-care (01) ==
LOC: LAB 08:07
PROVIDERS: ATTEND Nurse Practitioner Family
DX: D59.19 Other autoimmune hemolytic anemia (principal)
CPT/HCPCS: 80053; 85027

== ENCOUNTER 2022-12-09 11:17 | Outpatient (CLI) | payer BC ==
[2022-12-09 11:37] LABS: PLATELET COUNT 345 K/uL (152-353)
[2022-12-09 11:46] LABS: POTASSIUM 4.3 mmol/L (3.6-5.2)
== END 2022-12-09 19:24 | disposition home or self-care (01) ==
LOC: LAB 11:17
PROVIDERS: ATTEND Nurse Practitioner Family
DX: D59.19 Other autoimmune hemolytic anemia (principal)
CPT/HCPCS: 80053; 83615; 85027

== ENCOUNTER 2023-04-11 08:17 | Outpatient (CLI) | payer BC ==
[2023-04-11 09:06] LABS: PLATELET COUNT 359 K/uL (152-353)
[2023-04-11 09:14] LABS: POTASSIUM 4.2 mmol/L (3.6-5.2)
== END 2023-04-11 19:21 | disposition home or self-care (01) ==
LOC: LAB 08:17
PROVIDERS: ATTEND Nurse Practitioner Family
DX: D59.19 Other autoimmune hemolytic anemia (principal)
CPT/HCPCS: 80053; 83615; 85027